=== PATIENT | male | born 1990 | race Caucasian/White ===

== ENCOUNTER 2017-05-19 15:53 | Emergency (ER) | payer OTHER ==
[~2017-05-19] VITALS: Ht 175.3 cm; Wt 56.7 kg
[2017-05-19 15:54] VITALS: BP 128/83
[2017-05-19] MEDS ORDERED: SODIUM CHLORIDE FLUSH 10ML SYR IVF ONE (16:30)
[2017-05-19] MEDS ORDERED: SODIUM CHLORIDE 0.9% 1,000ML IVBOLUS ONE (16:30)
[2017-05-19] MEDS ORDERED: CLINDAMYCIN 150 MG/ML, 6ML IV ONE (16:30)
[2017-05-19] MEDS ORDERED: LIDOCAINE 1%, 20ML INFIL ONE (16:30)
[2017-05-19] MEDS ORDERED: DEXAMETHASONE 4 MG/ML, 1ML IV ONE (16:30)
[2017-05-19] MEDS ORDERED: CLINDAMYCIN PMX 600MG/50ML 0 ML ONE (16:38)
[2017-05-19] MEDS ORDERED: DEXAMETHASONE 4 MG/ML, 5ML ONE (16:38)
[2017-05-19] MEDS ORDERED: LIDOCAINE 1%, 20ML ONE (16:39)
[2017-05-19] MEDS ORDERED: DEXAMETHASONE 4 MG TABLET PO ONE (17:00)
[2017-05-19] MEDS ORDERED: DEXAMETHASONE 4 MG TABLET ONE (17:01)
[2017-05-19] MEDS ORDERED: CLINDAMYCIN PMX 600MG/50ML 50 ML IV ONE (17:30)
== END 2017-05-19 17:36 | disposition home or self-care (01) ==
LOC: ED 17:25
DX: J03.90 Acute tonsillitis, unspecified (principal)
CPT/HCPCS: 99283

== ENCOUNTER 2017-05-22 07:07 | Emergency (ER) | payer OTHER ==
[~2017-05-22] VITALS: Ht 175.3 cm; Wt 60.0 kg
[2017-05-22] MEDS ORDERED: DEXAMETHASONE 4 MG/ML, 1ML IV ONE (07:30)
[2017-05-22] MEDS ORDERED: CEFTRIAXONE PMX 1GM/50ML 50 ML IVPB ONE (07:30)
[2017-05-22] MEDS ORDERED: KETOROLAC 30 MG/1 ML IVPush ONE (07:30)
[2017-05-22] MEDS ORDERED: morphine SULFATE 10 MG/ML, 1ML IVPush ONE (07:30)
[2017-05-22] MEDS ORDERED: ONDANSETRON 2MG/ML, 2ML IVPush ONE (07:30)
[2017-05-22] MEDS ORDERED: SODIUM CHLORIDE FLUSH 10ML SYR IVF ONE (07:30)
[2017-05-22] MEDS ORDERED: SODIUM CHLORIDE 0.9% 1,000ML IVBOLUS ONE (07:30)
[2017-05-22] MEDS ORDERED: CLAR500T3 PO (07:47)
[2017-05-22] MEDS ORDERED: CEFTRIAXONE PMX 1GM/50ML 50 ML ONE (07:55)
[2017-05-22] MEDS ORDERED: MORPHINE SULFATE 4 MG/ML, 1ML ONE (07:55)
[2017-05-22] MEDS ORDERED: ONDANSETRON 2MG/ML, 2ML ONE (07:55)
[2017-05-22] MEDS ORDERED: KETOROLAC 30 MG/1 ML ONE (07:55)
[2017-05-22] MEDS ORDERED: DEXAMETHASONE 4 MG/ML, 1ML ONE (07:59)
[2017-05-22 08:05] LABS: BLOOD UREA NITROGEN 12 mg/dL (7-18)
[2017-05-22] MEDS ORDERED: OMNIPAQUE 350 MG/ML, 100ML BOTTLE ONE (09:13)
[2017-05-22 10:00] VITALS: BP 132/80
== END 2017-05-22 10:34 | disposition home or self-care (01) ==
LOC: ED 09:37
DX: J36 Peritonsillar abscess (principal)
CPT/HCPCS: 36415; 42700; 70491; 80048; 82040; 85025; 96365; 96366; 96375; 99285; J0696; J1100; J1885; J2270; J2405; J7030; Q9967